=== PATIENT | male | born 1965 | race Asian ===

== ENCOUNTER 2018-11-08 07:56 | Day surgery (SDC) | payer BC ==
[~2018-11-08] VITALS: Ht 165.1 cm; Wt 89.3 kg
[~2018-11-08 07:56] MED LIST: ASPIRIN X; LEXAPRO; LIPITOR; NORVASC; PROPRANOL
[2018-11-08 09:19] VITALS: Ht 165.1 cm; Wt 89.3 kg
[2018-11-08 09:25] VITALS: BP 132/80; PULSE 68; RESP 13
[2018-11-08] MEDS ORDERED: FENTAnyl 50 MCG/ML VIAL ONE (09:59)
[2018-11-08] MEDS ORDERED: MIDAZOLAM 1 MG/ML 2 ML INJ ONE ×2 (09:59)
[2018-11-08 10:03] VITALS: BP 111/67; PULSE 65; RESP 18
== END 2018-11-08 15:29 | disposition home or self-care (01) ==
LOC: GIL 07:56
PROVIDERS: ATTEND Internal Medicine Gastroenterology
DX: Z12.11 Encounter for screening for malignant neoplasm of colon (principal); D12.4 Benign neoplasm of descending colon; I10 Essential (primary) hypertension
CPT/HCPCS: 45385; 88305; J2250; J3010; Z7610